=== PATIENT | female | born 1940 | race Caucasian/White ===

== ENCOUNTER → 2021-04-15 | Outpatient (CLI) | payer MEDICARE, OTHER ==
[~2021-04-15] MED LIST: CATHETER FLUSH 10 ML SYR IV PRN; HOLD METFORMIN - RECEIVED CONTRAST 20 ML VIAL IV SCH; IOHEXOL 350 MG/ML 100 ML (OMNIPAQUE 350) VIAL IV ONE; NS 100 ML (IVPB) BAG IV ONE
[2021-04-15 09:11] LABS: BUN/CREATININE RATIO 24; CREATININE SERUM 0.79 MG/DL (0.60-1.30); GFR ESTIMATED > 60
--- NOTE | 2021-04-15 10:14 | Diagnostic Imaging Report ---
PROCEDURE: CT chest with contrast only. TECHNIQUE: Multiple contiguous axial images were obtained through the chest after administration of intravenous contrast. Auto Exposure Controls were utilized during the CT exam to meet ALARA standards for radiation dose reduction. INDICATION: History of left-sided renal malignancy and COPD. No previous for comparison. No acute or suspicious lytic or sclerotic bony lesion. No pathological-appearing axillary, hilar or mediastinal lymph nodes. No dominant lung mass or suspicious pulmonary nodularity. There were no findings felt suggestive of thoracic involvement by metastatic disease. There is partial visualization of the unremarkable appearing adrenal glands in the upper abdomen. The incompletely visualized liver parenchyma appeared nonacute. There is heterogeneous air trapping and features of centrilobular emphysema. Some mild ectasia of the central airways with several areas of bilateral lower lobe and right middle lobe mucoid impaction with areas of consolidation in the infrahilar lower lobes and medial right middle lobe. Appearance is suspicious for a ALLERGIC bronchopulmonary aspergillosis however background asthma and aspiration could not be excluded. No effusion or pneumothorax. IMPRESSION: Centrilobular emphysema, tracheobronchial megaly and bronchiectasis with multiple areas of mucoid impaction and distal consolidation notably in the lower lobes and right middle lobe suspicious for ABPA superimposed upon brachial background emphysema. No findings felt suggestive of thoracic metastasis. Dictated by: Dictated on workstation # [id number]
== END ==
LOC: RAD FS 08:35
PROVIDERS: ATTEND Internal Medicine Critical Care Medicine
DX: Z13.83 Encounter for screening for respiratory disorder NEC (principal); J43.2 Centrilobular emphysema; Z85.528 Personal history of other malignant neoplasm of kidney
CPT/HCPCS: 36415; 71260; 82565; 84520